=== PATIENT | female | born 1985 | race Caucasian/White ===

== ENCOUNTER 2017-05-13 16:40 | Emergency (ER) | payer BC, OTHER ==
[~2017-05-13] VITALS: Ht 162.6 cm; Wt 65.8 kg
--- NOTE | ~2017-05-13 | EKG ---
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 05/15/17 0841 1719 1719 Wang Marquez MD, FACC /EPI
[2017-05-13] MEDS ORDERED: DOXYCYCLINE 10100 MG PO (16:53)
[2017-05-13 17:39] LABS: HEMOGLOBIN 13.9 gm/dL (12.0-15.0); MCH 32.6 pg (26.0-34.0); MCHC 33.9 g/dL (28.0-37.0); MCV 96.2 fL (80.0-100.0); RBC 4.26 mil/uL (4.20-5.00); WBC 10.7 thou/uL (4.0-11.0)
[2017-05-13 17:43] LABS: URINE BILIRUBIN NEGATIVE (Negative); URINE BLOOD NEGATIVE (Negative); URINE COLOR YELLOW; URINE GLUCOSE-RANDOM* NEGATIVE (Negative); URINE KETONES NEGATIVE (Negative); URINE NITRITE NEGATIVE (Negative); URINE PROTEIN (DIPSTICK) NEGATIVE (Negative); URINE SPECIFIC GRAVITY 1.015 (1.003-1.035)
[2017-05-13 17:47] LABS: CALCIUM 8.9 mg/dL (8.5-10.1); CREATININE 0.7 mg/dL (0.6-1.0); POTASSIUM 3.7 mmol/L (3.5-5.1)
[2017-05-13 17:53] LABS: AMP/METHAMP Negative (Negative); BARBITURATES Negative (Negative); BENZODIAZEPINES Negative (Negative); COCAINE Negative (Negative); METHADONE Negative (Negative); OPIATES Negative (Negative); PCP Negative (Negative); THC Negative (Negative)
[2017-05-13 17:55] LABS: MAGNESIUM 1.8 mg/dL (1.8-2.4); PHOSPHORUS 3.6 mg/dL (2.5-4.9); TOTAL BILIRUBIN 0.4 mg/dL (<0.1-1.0); TOTAL PROTEIN 7.6 g/dL (6.4-8.2)
[2017-05-13] MEDS ORDERED: ANTIVERT25 MG PO (18:11)
[2017-05-13] MEDS ORDERED: ONDANSETRON HCL4 M2 PO (18:11)
[2017-05-13 18:35] VITALS: BP 141/76
== END 2017-05-13 18:35 | disposition home or self-care (01) ==
LOC: ER 16:40
PROVIDERS: Physician Assistant
DX: R42 Dizziness and giddiness (principal); R20.2 Paresthesia of skin; R20.0 Anesthesia of skin; F17.210 Nicotine dependence, cigarettes, uncomplicated; F10.99 Alcohol use, unspecified with unspecified alcohol-induced disorder

== ENCOUNTER 2017-10-19 15:39 | Emergency (ER) | payer OTHER ==
[~2017-10-19] VITALS: Ht 165.1 cm; Wt 63.5 kg
[~2017-10-19 15:39] MED LIST: ANTIVERT25 MG PO; DOXYCYCLINE 10100 MG PO; ONDANSETRON HCL4 M2 PO
[2017-10-19 16:53] LABS: URINE BILIRUBIN NEGATIVE (Negative); URINE BLOOD TRACE (Negative); URINE CLARITY CLEAR; URINE COLOR YELLOW; URINE GLUCOSE-RANDOM* NEGATIVE (Negative); URINE KETONES NEGATIVE (Negative); URINE LEUKOCYTES 1+ (Negative); URINE NITRITE NEGATIVE (Negative); URINE PROTEIN (DIPSTICK) NEGATIVE (Negative); URINE SPECIFIC GRAVITY <= 1.005 (1.005-1.035); URINE UROBILINOGEN 0.2 E.U./dl (0.2-1.0)
[2017-10-19 16:56] LABS: SQUAMOUS 0-3 Few /LPF (0-3); URINE WBC 0-5 Rare /HPF (0-5)
[2017-10-19] MEDS ORDERED: FLAGYL500 MG PO (16:56)
[2017-10-19 16:57] LABS: BACTERIA 1-9 Few /HPF (None Seen); CASTS None Seen /LPF (None Seen); CRYSTALS None Seen /LPF (None Seen); URINE RBC None Seen /HPF (0-2)
[2017-10-19] MEDS ORDERED: KEFLEX500 M1 PO (16:58)
[2018-02-02] MEDS ORDERED: CYCLOBENZAPRINE5 MG PO (00:07)
[2018-02-02] MEDS ORDERED: ULTRAM 50MG TAB50 MG PO (00:07)
== END 2017-10-19 17:06 | disposition home or self-care (01) ==
LOC: ER 15:39
PROVIDERS: Physician Assistant
DX: A59.9 Trichomoniasis, unspecified (principal); N39.0 Urinary tract infection, site not specified; F17.210 Nicotine dependence, cigarettes, uncomplicated